=== PATIENT | female | born 1960 | race Two or more races ===

== ENCOUNTER 2022-04-27 09:33 | Emergency (ER) | payer OTHER ==
[~2022-04-27] VITALS: Ht 170.2 cm; Wt 74.4 kg
== END 2022-04-27 14:05 | disposition home or self-care (01) ==
LOC: ER 09:33
DX: S49.92XA Unspecified injury of left shoulder and upper arm, initial encounter (principal); X58.XXXA Exposure to other specified factors, initial encounter; Y93.9 Activity, unspecified; Y92.9 Unspecified place or not applicable; Y99.9 Unspecified external cause status